=== PATIENT | male | born 1990 | race Caucasian/White ===

== ENCOUNTER 2017-02-11 02:20 | Emergency (ER) | payer SELFPAY ==
[~2017-02-11] VITALS: Ht 182.9 cm; Wt 115.0 kg
[2017-02-11] MEDS ORDERED: HALOPERIDOL LACTATE 5 MG/ML 1 ML VIAL ONE (02:22)
[2017-02-11] MEDS ORDERED: LORAZEPAM 2 MG/ML 1 ML VIAL ONE (02:22)
[2017-02-11 02:23] VITALS: Ht 182.9 cm; Wt 115.0 kg
[2017-02-11] MEDS ORDERED: LORAZEPAM 2 MG/ML 1 ML VIAL IM STA ×3 (02:23→02:41)
[2017-02-11] MEDS ORDERED: HALOPERIDOL LACTATE 5 MG/ML 1 ML VIAL IM STA (02:23)
[2017-02-11] MEDS ORDERED: LORAZEPAM 2 MG/ML 1 ML VIAL IV STA (02:47)
[2017-02-11 03:12] LABS: BUN/CREATININE RATIO 2.8 (10-20); CALCIUM 8.9 mg/dl (8.5-10.1); CREATININE 1.1 mg/dl (0.60-1.40)
--- NOTE | 2017-02-11 03:26 | EMERGENCY ROOM VISIT NOTE ---
History First contact with patient: 02:21 Chief Complaint: ALCOHOL OVERDOSE Stated Complaint: ETOH Nursing Triage Summary: picked up at [facility] for violent and inapropriate behavior, alcohol overdose History of Present Illness The patient is a 26 year old male who presents to the Emergency Room via ambulance for evaluation of apparent alcohol intoxication. History is limited secondary to patient's intoxicated state. Per EMS, the patient was kicked out of [facility] for violent behavior. On the way here, the patient apparently became combative with EMS. He does admit to drinking shots of liquor tonight. He denies any other drug use. There was no trauma. Review of Systems Review of systems limited due to alcohol intoxication. Past Medical/Surgical History Medical Problems: (1) Alcohol abuse (2) Alcohol dependence (3) Major depressive disorder (4) Self mutilating behavior (5) Severe major depression, single episode, without psychotic features (6) Suicide attempt Family History Diabetes mellitus Social History Smoking Status: Current Every Day Smoker Marital Status: single Housing Status: lives with significant other Occupation Status: employed Current/Historical Medications Unable to Obtain Active Prescriptions or Reported Meds Allergies Coded Allergies: Penicillins (Verified Allergy, Unknown, UNKNOWN, 07/14/16) Physical Exam Vital Signs Date Time Temp Pulse Resp B/P (MAP) Pulse Ox O2 Delivery O2 Flow Rate FiO2 02/11/17 06:45 79 16 114/83 97 Room Air 02/11/17 06:12 86 02/11/17 05:41 78 16 114/60 95 Room Air 02/11/17 03:37 98 16 116/67 91 Room Air 02/11/17 02:54 103 20 93 Room Air 02/11/17 02:30 109 02/11/17 02:23 108 16 116/89 97 Room Air Physical Exam VITALS: Vitals are noted on the nurse's note and reviewed by myself. Vital signs stable. GENERAL: This is a 26-year-old male, repeatedly screaming, swinging at nurses and security, appears to be visibly intoxicated, smells of ETOH. SKIN: The skin was without erythema, edema, or bruising. HEAD: Normocephalic atraumatic. EARS: External auditory canals clear. No hemotympanum. EYES: Pupils equal round and reactive to light and accommodation. NOSE: No deformities noted. MOUTH: There is crusted blood over the lips. There are no deep lacerations. No loose or chipped teeth. NECK: No cervical spine tenderness. HEART: Regular rate and rhythm without murmurs gallops or rubs. LUNGS: Clear to auscultation bilaterally without wheezes, rales or rhonchi. ABDOMEN: Soft, nontender. MUSCULOSKELETAL: Full range of motion throughout. Strength intact throughout. NEURO: Patient uncooperative and exhibiting violent behavior. Medical Decision & Procedures Laboratory Results 02/11/17 02:33 Test 02/11/17 02:33 Anion Gap 12.0 mmol/L (3-11) Est Creatinine Clear Calc Drug Dose 133.2 ml/min Estimated GFR () 106.8 Estimated GFR (Non- 92.2 BUN/Creatinine Ratio 2.8 (10-20) Calcium Level 8.9 mg/dl (8.5-10.1) Chemistry Specimen Hemolysis Ethyl Alcohol mg/dL 328.0 mg/dl (0-3) Medications Administered Medications (Trade) Dose Ordered Sig/Bindu Route Start Time Stop Time Status Last Admin Dose Admin Lorazepam (Ativan Inj) 2 mg NOW STAT IM 02/11/17 02:23 02/11/17 02:26 DC 02/11/17 02:28 2 MG Haloperidol Lactate (Haldol Inj) 10 mg NOW STAT IM 02/11/17 02:23 02/11/17 02:26 DC 02/11/17 02:28 10 MG Lorazepam (Ativan Inj) 2 mg NOW STAT IM 02/11/17 02:30 02/11/17 02:32 DC 02/11/17 02:30 2 MG Lorazepam (Ativan Inj) 2 mg NOW STAT IM 02/11/17 02:41 02/11/17 02:48 DC 02/11/17 02:45 2 MG Lorazepam (Ativan Inj) 2 mg NOW STAT IV 02/11/17 02:47 02/11/17 02:48 DC 02/11/17 02:47 2 MG ED Course The patient was evaluated as above. The patient is screaming, slamming his head off the bed and is uncooperative. Patient was given 10 mg Haldol IM and 2 mg Ativan IM. Mechanical restraints were placed on the patient's limbs. Patient was reevaluated and persistently displaying violent behavior. He was given an additional 2 mg Ativan IM. IV access was obtained at this time. I was notified by nursing staff that the patient was again becoming belligerent and he was given 2 mg Ativan IV. Patient was evaluated and was sleeping. Care of the patient was signed out to Mohsen Sterling PA-C at change of shift. Medical Decision Differential diagnosis includes alcohol intoxication, drug intoxication, head trauma, among others. The patient is a 26-year-old male who was brought here for evaluation of alcohol intoxication. The patient was extremely belligerent and exhibited very violent behavior, putting himself and staff in danger. For this reason, the patient was placed in mechanical restraints and given Haldol and multiple doses of Ativan. There is no evidence of trauma. EtOH was found to be 328. Renal function is normal. Vital signs are within normal limits. Care of the patient was signed out at change of shift, as the patient was still sleeping. Please see Mohsen Sterling's note for patient disposition. The patient's case was reviewed with Dr. Vasquez, ED attending physician, who agreed with my assessment and treatment plan. Impression Primary Impression: Alcohol use with intoxication Critical Care I have personally spent greater than 30 minutes of critical care time in the direct management of this patient. This includes bedside care, interpretation of diagnostic studies, and testing, discussion with consultants, patient, and family members, and other required patient management activities. This 30 minutes is in excess of all separately billable procedures. Departure Information Dispostion Home / Self-Care Condition GOOD Prescriptions Unable to Obtain Active Prescriptions or Reported Meds Referrals No Doctor, Assigned (PCP) Patient Instructions My [facility] Additional Instructions Do not drink any more alcohol today. For pain control, you can use the following [id number] medicines (if >12 yo): - Regular strength (325mg/tab) Tylenol (acetaminophen) 2 tabs every 4-6 hours as needed. Do not exceed 12 tablets in a 24 hour period. Avoid taking more than 4 grams (4000 mg) of Tylenol per day. This includes any other sources of acetaminophen you may take on a regular basis. - Regular strength (200 mg/tab) Advil (ibuprofen) 1-2 tabs every 4-6 hours as needed. Do not exceed a dose of 3200 mg per day. Rest and drink plenty of fluids. Follow-up with your family doctor as needed.
[2017-02-11 07:00] VITALS: O2SAT 97
[2017-02-11 08:55] VITALS: PULSE 109; O2SAT 99
[2017-02-11 11:43] VITALS: BP 129/75
--- NOTE | 2017-02-11 16:00 | EMERGENCY ROOM VISIT NOTE ---
ED Visit Note First contact with patient: 07:08 Chief Complaint: Alcohol overdose. History of Present Illness: Mr. Diaz is a 26-year-old white male who presents into the ED via ambulance for alcohol intoxication. Patient's care was transferred to [place] by Tracy Dukes PA-C at the end of her shift pending further detoxification and reevaluation. In summary patient was drinking alcohol last night and was removed from a bar for belligerent behavior. EMS and police were at the scene and he remained belligerent. He was placed in handcuffs and EMS transported the patient to the hospital. Once he got into the hospital he continued to be threatening and belligerent. He was sedated with Haldol and Ativan and required 4 pain leather restraints. It was reported also that before he was restrained he was banging his forehead into the hospital bed. A medical blood alcohol was collected and was 328. Over transfer of care I did go in to see the patient he was sleeping and was minimally arousable but not communicative. He was reassessed multiple times and was the same way and approximately 0945 he awoke from sleep and walked to the bathroom. I met him on his exit from the bathroom and he requested to be discharged to home. At that time I did perform a full history and physical examination. He was complaining of bilateral trapezius pain. He describes this as a muscular type pain. He did not rate his discomfort. He did not identify any aggravating or alleviating factors related to the pain. He does not remember having any pain prior to last night. When he has no associated symptoms with his pain including headache, bony neck pain, recent upper respiratory tract symptoms, stiff neck, sore throat, upper extremity weakness/numbness/tingling. Additionally he denies any falls or illicit drug use. Initially he was minimally responsive to light touch stimuli with moaning only. He was breathing and did not appear to be in any acute distress, with stable vital signs. Additionally he denies dizziness, lightheadedness, visual changes, hearing changes, difficulty speaking, difficulty swallowing, chest pain/discomfort, difficulty breathing, shortness of breath, abdominal pain, nausea and extremity pain. Review of Systems: As noted above in History of Present Illness. All body systems were reviewed with this patient and found to be negative unless noted above otherwise. Past Medical History: Patient denies. Social History: Patient is currently employed; he feels safe in his home environment; he admits to alcohol use and denies illicit drug use. Current Medications: Patient denies. Allergies to Medications: Amoxicillin. Physical Examination: Vital Signs: Date Time Temp Pulse Resp B/P (MAP) Pulse Ox O2 Delivery O2 Flow Rate FiO2 02/11/17 11:43 129/75 02/11/17 08:55 109 99 02/11/17 08:43 129/93 02/11/17 07:55 79 15 99 02/11/17 07:25 80 15 96 02/11/17 07:20 82 15 96 02/11/17 07:00 97 Room Air 02/11/17 06:50 80 14 96 02/11/17 06:47 114/103 02/11/17 06:45 79 16 114/83 97 Room Air 02/11/17 06:20 85 15 97 02/11/17 06:12 86 02/11/17 05:50 83 14 95 02/11/17 05:42 114/60 02/11/17 05:41 78 16 114/60 95 Room Air 02/11/17 05:20 88 17 94 02/11/17 04:50 89 16 93 02/11/17 04:20 94 20 89 02/11/17 03:50 97 19 91 02/11/17 03:37 98 16 116/67 91 Room Air 02/11/17 03:25 116/67 02/11/17 03:20 111 23 93 02/11/17 02:54 103 20 93 Room Air 02/11/17 02:50 117 23 95 02/11/17 02:30 109 02/11/17 02:25 116/89 02/11/17 02:23 108 16 116/89 97 Room Air General: 26 year old white male in no acute distress, afebrile and hemodynamically stable. Neurological: Once awake patient is alert and oriented 3. Answering questions appropriately and following commands. Normal gait. Cranial nerves II through XII grossly intact. Good short-term and long-term recall. No focal motor sensory deficits. Skin: Warm dry and pink. Mid to left frontal area is a small contusion and a small amount of swelling but no open wounds; this is reported where he struck his head on the bed. Additionally I noticed a small amount of blood on his lower lip. I explored his mouth and on the inside of the lower lip on the right there was a contusion and small superficial laceration of the mucous membranes. The surrounding teeth and gingiva were shows no injury in the teeth were nontender and stable and her socket. Head: Atraumatic and normocephalic. Skull: Contusion as noted above. No bony deformity, bony crepitus or depressions. No raccoon's eyes or edwards signs. No drainage from the ears of the nostril; no hemotympanum. Face: Once again please note SKIN above. No other facial trauma was noted. No bony tenderness throughout the face, bony crepitus. PERRLA. EOMI without nystagmus. Conjunctiva is mildly injected. Conjunctivae is pink without drainage. No malocclusion. Tongue midline. Airway is patent. Speech is normal. No JVD. Trachea midline. Back: No tenderness over the cervical, thoracic or lumbar bony spines. No bony deformity, step-offs, crepitus, swelling or ecchymosis. Minimal tenderness in the bilateral trapezius muscle without palpable spasm. Full range of motion of the cervical spine. No CVA tenderness. Thorax: Lungs sounds are clear to auscultation and equal bilaterally with symmetrical chest wall movements. No bony tenderness, crepitus, swelling or ecchymosis. Heart: Regular rate and rhythm. No murmurs, rubs or gallops Abdomen: Soft, nondistended and nontender. Bowel sounds are present in all quadrants. No organomegaly or, rigidity, rebound tenderness, guarding or masses. Extremities: No gross long bone deformities. No tenderness over the joints. Moves extremities well on command and with purpose. All distal neurovascular statuses are intact and equal bilaterally. ED COURSE: Patient is assessed as noted above. Patient's medication list was reviewed. Laboratory Testing: Test 02/11/17 02:33 Range/Units Sodium Level 145 136-145 mmol/L Potassium Level 4.0 3.5-5.1 mmol/L Chloride Level 111 98-107 mmol/L Carbon Dioxide Level 22 21-32 mmol/L Anion Gap 12.0 3-11 mmol/L Blood Urea Nitrogen 3 7-18 mg/dl Creatinine 1.10 0.60-1.40 mg/dl Est Creatinine Clear Calc Drug Dose 133.2 ml/min Estimated GFR () 106.8 Estimated GFR (Non- 92.2 BUN/Creatinine Ratio 2.8 10-20 Random Glucose 115 70-99 mg/dl Calcium Level 8.9 8.5-10.1 mg/dl Chemistry Specimen Hemolysis Ethyl Alcohol mg/dL 328.0 0-3 mg/dl All nursing documentation reviewed. EKG monitoring: He was monitored during his entire ED stay. He was sinus rhythm without ectopy and his pulse oximetry remained in a high 90s. I did reassess the patient multiple times during his stay in the emergency department. Patient was educated about today's findings and instructed on his treatment plan ; he verbalizes understanding and agreement with this plan. Clinical Impression: Acute alcohol intoxication. Medical Decision Makin26 year old male brought in for presumably alcohol intoxication. Initial history limited as he was not able to answer questions. He was monitored and an alcohol level was obtained; 328. Because of her wrist instructed behavior he was given Ativan and Haldol and required physical restraint. We did watch him for several hours throughout the night and he was able to maintain his own airway. After some time he did awaken. I was able to obtain a full history and physical. There is no evidence of other toxic ingestions, significant trauma, anemia, hypoglycemia, head injury, intracranial pathology, meningitis, encephalitis, acute intrathoracic or abdominal pathologies or other metabolic conditions. Prior to discharge he was able to ambulate without assistance, go to the bathroom and tolerate oral fluids. Disposition: He was discharged to home in stable condition via taxi. Plan: STOP DRINKING ETOH. Patient was in instructions on alcoholism, alcohol abuse, alcohol intoxication and alcohol withdrawal. Patient was encouraged to use ibuprofen or Tylenol as needed for pain. Patient was encouraged to increase clear fluids for the next 4-5 days to 4-5 quarts to maintain hydration. Patient was encouraged to followup with primary care provider or return emergency department as needed.
== END 2017-02-11 12:00 | disposition home or self-care (01) ==
LOC: EDBD 02:20 → C.EDB 02:22
DX: F10.129 Alcohol abuse with intoxication, unspecified (principal); Y90.8 Blood alcohol level of 240 mg/100 ml or more; F32.9 Major depressive disorder, single episode, unspecified; F17.200 Nicotine dependence, unspecified, uncomplicated